=== PATIENT | male | born 1975 | race Caucasian/White ===

== ENCOUNTER 2024-04-23 13:27 | Outpatient (REF) | payer SELFPAY ==
[2024-04-23 13:28] VITALS: BP 155/120; PULSE 72; RESP 16; TEMP 36.6; O2SAT 100
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
[2024-04-23 14:45] LABS: Absolute Lymphocyte Count 1.68 X10^3/uL (0.83-4.51); Absolute Neutrophil Count 3.9 X10^3/uL (2.0-7.7); Basophil# 0.04 X10^3/uL; Basophil% 0.7 % (0-1); Eosinophil# 0.02 X10^3/uL; Eosinophils% 0.3 % (0-5); Hematocrit 40.3 % (40-54); Hemoglobin 13.4 g/dL (13.0-16.5); Lymphocyte # 1.68 X10^3/ul (0.83-4.51); Lymphocyte % 28.2 % (19-41); Mean Corp Hgb Conc 33.3 g/dL (32-36); Mean Corpuscular Hgb 29.4 pg (27.0-32.0); Mean Corpuscular Volume 88.4 fL (80-94); Mean Platelet Vol. 10.7 fl (6.2-12.0); Monocyte# 0.34 X10^3/uL; Monocyte% 5.7 % (0-10); NRBC Flagged by Analyzer 0 % (0-5); Neutrophil # 3.86 X10^3/uL (2.7-7.7); Neutrophil % 64.9 % (47-70); Platelet Count 219 K/mm3 (150-450); RBC Distribution Width CV 15.9 % (11.6-14.6); RBC Distribution Width SD 51.1 fl (35.1-43.9); Red Blood Count 4.56 M/mm3 (4.6-6.2)
--- NOTE | 2024-04-23 14:50 | CM.ED ---
Social work Due to patient being self-pay, SW called Crisis ([phone]) and spoke with Peg. SW shared with Peg information known due to triage and doctor notes so far. Peg stated intent to call the ED nurses station when a member from Crisis could come to the hospital for assessment. Peg stated it may be about an hour due to just receiving a walk-in patient at Crisis. Nursing and Dr. Ham updated. Elizabeth Mariee, SECURITY INSTALLATION TECHNICIAN, BEVERAGE SERVER
[2024-04-23 14:52] VITALS: PULSE 87; RESP 18; O2SAT 99
[2024-04-23 14:58] LABS: Amphetamine Urine NEGATIVE (<1000 ng/mL); Barbiturate Urine NEGATIVE (< 200 ng/mL); Benzodiazepine Urine NEGATIVE (< 200 ng/mL); Buprenorphine Urine NEGATIVE (< 200 ng/mL); Cocaine Urine NEGATIVE (< 300 ng/mL); Fentanyl, Urine NEGATIVE; Methadone Urine NEGATIVE (< 300 ng/mL); Opiates Urine NEGATIVE (< 300 ng/mL); Oxycodone, Urine NEGATIVE (< 100 ng/mL); PCP Urine NEGATIVE (< 25 ng/mL); THC Urine NEGATIVE (< 50 ng/mL)
[2024-04-23 14:58] LABS: Alcohol, Blood (Medical)-Serum < 10.1 mg/dL (<=10.0)
[2024-04-23 15:02] LABS: AST(SGOT) 18 U/L (<=37); Alanine Aminotransfer ALT/SGPT 11 U/L (<=46); Albumin, Serum 4.4 g/dL (3.5-5.0); Alkaline Phosphatase 76 U/L (40-129); Anion Gap 18 (5-15); BUN 26 mg/dL (4-19); Bilirubin, Direct 0.37 mg/dL (0.00-0.30); Calcium,Total 11.4 mg/dL (7.6-11.0); Carbon Dioxide 21.2 mmol/L (21.0-32.0); Chloride 103 mmol/L (98-108); Creatinine, Serum 1.16 mg/dL (0.70-1.20); EST Glomerular Filtration Rate 77 (>60); Globulin 2.2 g/dL (2.2-4.2); Glucose 73 mg/dL (70-99); Protein, Total 6.7 g/dL (5.9-8.4); Sodium Level 142 mmol/L (133-145)
--- NOTE | 2024-04-23 15:45 | ED.RN ---
steps out of patients room requesting what we are waiting on. Dr. Ham informs everything is back and we are waiting for Crisis to com evaluate the patient. states he has already been evaluated by our social sciences department chair. he is already pink slipped. we need him medically cleared and our social sciences department chair will place him. DR. Ham states I'm not sure who is doing that on your end. We don't have a name or anyone who is called to say this patient is coming to ED or who evaluated him. It is my responsibility as a doctor to medically clear him and have our Crisis Counselor to evaluate him. states we just needed you to do an EKG. The second steps in states I have her on the phone now... Dr. Ham states have her call the ED and ask to speak to Dr. Ham. Lisbeth, Charge Nurse made aware of the situation.
--- NOTE | 2024-04-23 15:48 | CM.ED ---
Social work Dr. Ham stated to this SW that he spoke with Crista Campos ([phone]) at the [facility]; per Crista, no mental health assessment is needed as a referral has already been made to [place] from Crista. Crista reportedly stated patient is simply here for medical clearance due to refusing to engage in medical clearance from the halfway's medical team. SW called Crisis ([phone]) and spoke with Peg again to state patient no longer needing to be assessed. Peg voiced understanding. Elizabeth Mariee, JOURNEYMAN CARPENTER, SENIOR WRITER
== END 2024-04-23 15:53 ==
LOC: ED 13:27
PROVIDERS: Referring Provider Emergency Medicine; Visit Provider Emergency Medicine
DX: F41.1 Generalized anxiety disorder (principal)
CPT/HCPCS: 80048; 80076; 80307; 82077; 84443; 85025; 93005